=== PATIENT | male | born 1955 | race Caucasian/White ===

== ENCOUNTER 2017-06-28 07:33 | Day surgery (SDC) | payer OTHER ==
[~2017-06-28] VITALS: Ht 182.9 cm; Wt 105.1 kg
[~2017-06-28 07:33] MED LIST: ALPR-412 PO; ASPI-555 PO; DESL5TAB38 PO; FISH1CAP49 PO; MAGN250T2 PO
[2017-06-28 07:55] VITALS: BP 107/69
[2017-06-28] MEDS: SODIUM CHLORIDE 0.9% 1000ML 1,000 ML IV ONE (08:17)
[2017-06-28 08:44] VITALS: BP 107/73
== END 2017-06-28 09:15 | disposition home or self-care (01) ==
LOC: DAH 07:33 → ENDO 07:33
PROVIDERS: ATTEND Internal Medicine Gastroenterology
DX: Z12.11 Encounter for screening for malignant neoplasm of colon (principal); Z85.828 Personal history of other malignant neoplasm of skin; Z68.32 Body mass index [BMI] 32.0-32.9, adult; Z79.899 Other long term (current) drug therapy; Z90.5 Acquired absence of kidney
CPT/HCPCS: A4606; J7030

== ENCOUNTER → 2018-10-04 | Outpatient (CLI) | payer OTHER | END | disposition home or self-care (01) | LOC: RAH 09:58 | PROVIDERS: ATTEND Internal Medicine Cardiovascular Disease | DX: Z13.6 Encounter for screening for cardiovascular disorders (principal) | CPT/HCPCS: 75571 ==